=== PATIENT | female | born 1945 | race Caucasian/White ===

== ENCOUNTER → 2018-03-22 | Outpatient (CLI) | payer BC ==
[~2018-03-22] MED LIST: IOPAMIDOL 370 MG/ML 200 ML INFUS..BTL INJ ONE; SODIUM CHLORIDE 0.9% 50ML 50 ML ONE
[2018-03-22 18:40] LABS: BLOOD UREA NITROGEN 12 mg/dL (7-26); BUN/CREATININE RATIO 14 (6-25); CREATININE, SERUM 0.83 mg/dL (0.57-1.11); EST GLOMERULAR FILTRATION RATE > 60 ML/MIN (60-)
--- NOTE | 2018-03-22 19:42 | Diagnostic Imaging Report ---
CT Abdomen And Pelvis with Intravenous Contrast INDICATION: Diffuse abdominal pain TECHNIQUE: Thin collimation axial images obtained from the diaphragm to the level of the pubic symphysis following the uneventful administration of 100 cc of low osmolar, nonionic intravenous contrast. RADIATION DOSE: Total DLP: 344.31 mGy*cm Estimated effective dose: (DLP x 0.015 x size factor) mSv CTDIvol has been reviewed. It is below the limits set by the Radiation Protocol Committee (RPC). COMPARISON: None. ABDOMEN FINDINGS: Lung Bases: Clear. The visualized portions of the mediastinum are normal.. Liver: Decreased attenuation consistent with steatosis. No evidence for mass. Gallbladder: Present and appears normal. No biliary ductal dilatation. Pancreas: Normal attenuation without mass or ductal dilatation. Spleen: Lobulated in contour but normal in size.. Adrenal Glands: No evidence for mass. Kidneys: Right: Normal enhancement. A cyst in the upper pole measures 7 mm. No hydronephrosis. Left: Normal enhancement. No soft tissue mass. No hydronephrosis. Lymph Nodes: No abdominal or retroperitoneal lymphadenopathy. Aorta: Normal in diameter. Scattered calcifications are present PELVIS FINDINGS: Bowel: Stomach: Distended with water and is normal.. Small Bowel: Normal in caliber with normal wall thickness. Large Bowel: Diverticulosis coli is present particularly in the sigmoid colon with mural thickening suggestive of previous bouts of diverticulitis. No acute inflammation. Appendix: Normal appendix. Bladder: Under distended but otherwise normal. The uterus is present and is atrophic. The paranasal vasculature is prominent. There are no adnexal masses. No free fluid or fluid collection. Bones: Moderate degenerative changes of the spine. No compression deformities. Disc osteophyte complexes at L1-2 and L2-3 protrude into the spinal canal. A bone island in the right greater trochanter measures 2 mm. IMPRESSION: 1. Diverticulosis coli. No evidence for bowel obstruction or inflammation. Normal appendix. 2. Prominent parametrial vasculature is suggestive of pelvic congestion syndrome if there is a history of chronic abdominal pain. 3. Hepatic steatosis. 4. No evidence of renal calculus or obstructive uropathy. Subcentimeter cyst in the right kidney. Signed by: Dr. Sacha Gonzáles MD on 03/22/2018 7:39 PM
== END ==
LOC: CT 17:32
PROVIDERS: ATTEND Family Medicine
DX: R10.9 Unspecified abdominal pain (principal); R14.0 Abdominal distension (gaseous)
CPT/HCPCS: 36415; 74177; 82565; 84520

== ENCOUNTER → 2022-07-13 | Outpatient (CLI) | payer MEDICARE, OTHER | LOC: RAD 15:11 | PROVIDERS: ATTEND Internal Medicine | DX: J40 Bronchitis, not specified as acute or chronic (principal) | CPT/HCPCS: 71046 ==

== ENCOUNTER 2023-05-14 21:24 | Emergency (ER) | payer MEDICARE, OTHER ==
[~2023-05-14] VITALS: Ht 160 cm; Wt 65.3 kg
[2023-05-14 21:49] VITALS: O2SAT 99
[2023-05-14] MEDS ORDERED: ONDANSETRON HCL INJ 2MG/ML 2ML 2 MG/ML VIAL IV STA (21:49)
[2023-05-14] MEDS ORDERED: ONDANSETRON HCL INJ 2MG/ML 2ML 2 MG/ML VIAL ONE (21:51)
[2023-05-14] MEDS ORDERED: FENTANYL CITRATE/PF 100MCG/2 ML INJ ONE (21:51)
[2023-05-14] MEDS ORDERED: FENTANYL CITRATE/PF 100MCG/2 ML INJ IV ONE (22:00)
[2023-05-14] MEDS ORDERED: HYDROCODONE/APAP 7.5MG-325MG 1 EA TAB PO ONE (23:15)
[2023-05-14] MEDS ORDERED: HYDROCODON-ACE1 EA12 PO (23:49)
[2023-05-15 00:31] VITALS: BP 149/80; PULSE 84; RESP 17
== END 2023-05-15 00:40 | disposition home or self-care (01) ==
LOC: ER 21:39
DX: S52.122A Displaced fracture of head of left radius, initial encounter for closed fracture (principal); S42.492A Other displaced fracture of lower end of left humerus, initial encounter for closed fracture; V19.9XXA Pedal cyclist (driver) (passenger) injured in unspecified traffic accident, initial encounter; Y93.55 Activity, bike riding; Y92.488 Other paved roadways as the place of occurrence of the external cause; E78.5 Hyperlipidemia, unspecified
CPT/HCPCS: 29125; 73080; 99284; J2405; J3010

== ENCOUNTER → 2024-03-06 | Outpatient (REF) | payer MEDICARE, OTHER ==
[~2024-03-06] MED LIST changes: +HYDROCODON-ACE1 EA12 PO; -IOPAMIDOL 370 MG/ML 200 ML INFUS..BTL INJ ONE; -SODIUM CHLORIDE 0.9% 50ML 50 ML ONE
== END ==
LOC: RAD 12:42
PROVIDERS: ATTEND Internal Medicine
DX: J40 Bronchitis, not specified as acute or chronic (principal)
CPT/HCPCS: 71046